=== PATIENT | male | born 1945 | race Caucasian/White ===

== ENCOUNTER → 2024-03-16 11:58 | Outpatient (CLI) | payer MEDICARE, BC, OTHER, SELFPAY ==
--- NOTE | 2024-03-16 12:04 | DI.MRI.S_ITS ---
PROCEDURE: MR CERVICAL SPINE WO CON INDICATIONS: Radiculopathy, cervical region TECHNIQUE: Noncontrast sagittal T1 spin echo and T2 fast spin echo, sagittal STIR, foraminal oblique sagittal T2 fast spin echo, and axial gradient echo or T2 fast spin echo through the cervical spine. COMPARISON: None. FINDINGS: Image quality: Excellent. Alignment and Curvature: There is normal bony alignment. Bone Marrow: Marrow demonstrates normal overall signal. Spinal Cord: Visualized spinal cord has normal size and signal. No cerebellar tonsillar herniation. Paraspinous Soft Tissues: No paravertebral masses. Prevertebral soft tissues are normal in thickness. There is a subcutaneous T1 hypointense focus and T2 heterogeneous focus within the right posterior lateral neck node measures approximately 1 x 1 cm in. C2-C3: There is a small central disc protrusion that mildly effaces the ventral thecal sac. No significant foraminal stenosis. There is bilateral facet arthropathy. C3-C4: No spinal canal stenosis. [id number] left foraminal stenosis. The right foramen is patent. There is bilateral facet arthropathy and uncovertebral joint arthropathy. C4-C5: There is a disc osteophyte complex that mildly effaces the ventral thecal sac. Mild to moderate stenosis of the right foramen. Left foramen is patent. There is bilateral facet arthropathy and uncovertebral joint arthropathy. C5-C6: There is a disc osteophyte complex that mildly effaces the ventral thecal sac. Mild to moderate right foraminal stenosis. The left foramen is patent. There is bilateral facet arthropathy and uncovertebral joint arthropathy. C6-C7: No spinal canal stenosis moderate left foraminal stenosis and mild right foraminal narrowing. Bilateral facet arthropathy and uncovertebral joint arthropathy. C7-T1: No spinal canal stenosis or foraminal stenosis there is bilateral facet arthropathy. Small synovial cyst within the left facet joint. IMPRESSION: 1. No significant spinal stenosis within the cervical spine. 2. Moderate left foraminal stenosis at C6-C7. 3. There is a 1 x 1 cm subcutaneous lesion within the right posterior lateral neck that is of uncertain clinical significance. Correlate clinically. Dictated by: Curt Valiente M.D. on 03/16/2024 at 14:11 Approved by: Curt Valiente M.D. on 03/16/2024 at 14:49
== END ==
PROVIDERS: Referring Provider Orthopaedic Surgery; Visit Provider Orthopaedic Surgery
DX: M54.12 Radiculopathy, cervical region (principal); M48.02 Spinal stenosis, cervical region; R22.1 Localized swelling, mass and lump, neck
CPT/HCPCS: 72141